=== PATIENT | male | born 1940 | race Caucasian/White ===

== ENCOUNTER → 2016-07-21 | Outpatient (CLI) | payer OTHER ==
[~2016-07-21] MED LIST: ASPIRIN81 M2 PO; ATIVAN1 MG PO; BUSPIRONE HCL10 MG PO; VIAGRA50 MG PO; WELLBUTRIN XL300 MG PO; ZOCOR40 MG PO
--- NOTE | ~2016-07-21 | EXE ---
[facility] [employer] [place] [address] STRESS ECHOCARDIOGRAM Name: LEXI AGUIAR Room #: REG [facility]#: [id number] Admission: 07/21/16 Attend Phys: Shahram Chamorro MD Discharge: Date of : 38 Date of Service: 07/21/16 1017 Report #: [id number] THIS REPORT FOR: //name// APPROVED REPORT Exam: Stress Echocardiogram Reason for Exam: CAD Patient Location: Out-Patient Stress Nurse: Dede Jane RN HR: 80 bpm Medical History Medical History: Carotid artery disease, Hyperlipidemia Cardiac Risk Factors: Hyperlipidemia, Smoking Procedure The patient underwent an Exercise Stress Test using the Bang Protocol. Blood pressure, heart rate, and EKG were monitored. An Echocardiogram was performed by dermatology technician in four stages in quad fashion. At peak stress, four selected images were obtained and placed side by side with resting images for comparison. Testing Details Test: Exercise stress testing was performed using a Bang protocol. HR Resting HR: 80 bpm Max Heart Rate (APMHR): 143 bpm Max HR Achieved: 153 bpm Target HR (85% APMHR): 121 bpm % of APMHR: 106 HR response to stress: Normal HR response to stress BP Resting BP: 132/74 mmHg Max BP: 144/64 mmHg Recovery BP: 126/60 mmHg ECG Resting ECG: Sinus Rhythm, nonspecific ST-T abnormalities Stress ECG: Sinus Rhythm, nonspecific ST-T abnormalities ST Change: Non-ischemic Clinical Reason for Termination: Maximal effort [facility] [address] [place] [address] STRESS ECHOCARDIOGRAM Name: LEXI AGUIAR Room #: REG [facility]#: [id number] Admission: 07/21/16 Attend Phys: Shahram Chamorro MD Discharge: Date of : 38 Date of Service: 07/21/16 1017 Report #: [id number] Exercise duration: 7 min Exercise capacity: 7.6 METs Overall Exercise Capacity for Age: Average Pre-Stress Echo The resting Echocardiogram showed normal left ventricular contractility with an estimated Ejection Fraction of about 50-55%. Post-Stress Echo The stress Echocardiogram showed normal left ventricular contractility with an estimated Ejection Fraction of about 65-70%. Clinical Normal augmentation of myocardial wall segments using a 17 segment model. Conclusion Clinical Response: Non-ischemic Stress ECG Response: Non-ischemic Stress Echo Images: Non-ischemic No prior study available for comparison. Other Information Study Quality: Good <ELECTRONICALLY SIGNED> By: Shahram Chamorro MD 07/21/167 16 16 Shahram Chamorro MD /INF
== END ==
LOC: CV 08:34
DX: I25.10 Atherosclerotic heart disease of native coronary artery without angina pectoris (principal); E78.5 Hyperlipidemia, unspecified